=== PATIENT | male | born 1980 | race Caucasian/White ===

== ENCOUNTER 2018-11-09 22:41 | Observation (INO) | payer MEDICAID ==
[2018-11-10 01:26] LABS: ADD MAN DIFF? NO
[2018-11-10 01:28] LABS: ABNORMAL IP MESSAGE 1; BASOPHILS % 0.6 % (0.0-2.0); EOSINOPHILS # 0.1 10^3/ul (0.0-0.5); EOSINOPHILS % 2.1 % (0.0-7.0); HEMATOCRIT 30.1 % (42.0-52.0); HEMOGLOBIN 10.6 g/dl (14.0-18.0); LYMPHOCYTES # 1.1 10^3/ul (0.8-2.9); LYMPHOCYTES % 33.3 % (15.0-51.0); MEAN CORPUSCULAR HEMOGLOBIN 34.1 pg (29.0-33.0); MEAN CORPUSCULAR HGB CONC 35.2 g/dl (32.0-37.0); MEAN CORPUSCULAR VOLUME 96.8 fl (82.0-101.0); MEAN PLATELET VOLUME 10.5 fl (7.4-10.4); MONOCYTE # 0.4 10^3/ul (0.3-0.9); MONOCYTES % 10.6 % (0.0-11.0); NEUTROPHIL # 1.8 10^3/ul (1.6-7.5); NEUTROPHILS % 53.1 % (39.0-77.0); PLATELET COUNT 49 10^3/UL (140-415); POSITIVE DIFF @See below; RED BLOOD COUNT 3.11 10^6/ul (4.70-6.10); RED CELL DISTRIBUTION WIDTH 13.8 % (11.5-14.5)
[2018-11-10 01:28] LABS: WHITE BLOOD COUNT 3.3 10^3/ul (4.8-10.8)
[2018-11-10 01:46] LABS: INR 1.61; PROTIME 19.2 Sec (11.9-14.9); PT RATIO 1.5
[2018-11-10 01:47] LABS: PARTIAL THROMBOPLASTIN TIME 37.1 Sec (23.0-35.0)
[2018-11-10 01:48] LABS: ALANINE AMINOTRANSFERASE 22 IU/L (13-69); ALBUMIN 3.3 g/dl (3.3-4.9); ALBUMIN/GLOBULIN RATIO 0.67; ALKALINE PHOSPHATASE 118 IU/L (42-121); ANION GAP 10 (5-13); ASPARTATE AMINO TRANSFERASE 59 IU/L (15-46); BILIRUBIN,INDIRECT 2.2 mg/dl (0-1.1); BILIRUBIN,TOTAL 2.2 mg/dl (0.2-1.3); BLOOD UREA NITROGEN 12 mg/dl (7-20); CALCIUM 8.4 mg/dl (8.4-10.2); CARBON DIOXIDE 25 mmol/L (21-31); CHLORIDE 101 mmol/L (97-110); CREATININE 0.53 mg/dl (0.61-1.24); Estimated GFR > 60 mL/min (>60); GLUCOSE 94 mg/dl (70-220); POTASSIUM 3.4 mmol/L (3.5-5.1); SODIUM 136 mmol/L (135-144); TOTAL PROTEIN 8.2 g/dl (6.1-8.1)
[2018-11-10 01:56] LABS: B-TYPE NATRIURETIC PEPTIDE 82 PG/ML (0-125)
[2018-11-10 02:00] LABS: TROPONIN-I < 0.012 ng/ml (0.000-0.120)
[2018-11-10] MEDS: FUROSEMIDE 40 MG INJ IV (02:20)
[2018-11-10] MEDS ORDERED: ONDANSETRON 4 MG INJ IV ×2 (03:00→03:30)
[2018-11-10] MEDS ORDERED: NACL 0.9% 3 ML SYG IV ×2 (03:00→03:30)
[2018-11-10] MEDS ORDERED: morphine 2 MG INJ IV (03:30)
[2018-11-10 03:46] LABS: ETHANOL < 10.0 mg/dl (0-0)
[2018-11-10 04:25] LABS: HEPATITIS B SURFACE ANTIGEN NEGATIVE (NEGATIVE)
[2018-11-10 04:43] LABS: HEPATITIS C VIRAL ANTIBODY NEGATIVE (NEGATIVE)
[2018-11-10 04:46] LABS: HEPATITIS B SURFACE ANTIBODY NEGATIVE (NEGATIVE)
[2018-11-10] MEDS: PANTOPRAZOLE 40 MG INJ IV (05:01)
[2018-11-10] MEDS: morphine 2 MG INJ IV (05:12)
[2018-11-10 05:55] LABS: HEMOGLOBIN A1C 4.4 % (0-5.9)
[2018-11-10 06:21] LABS: CHOL/HDL RATIO 2.6 RATIO; CHOLESTEROL 124 mg/dl (100-200); HDL CHOLESTEROL 46 mg/dl (28-63); LDL CHOLESTEROL,CALCULATED 68 mg/dl; TRIGLYCERIDES 50 mg/dl (0-149)
[2018-11-10 06:21] LABS: MAGNESIUM 1.6 mg/dl (1.7-2.5)
[2018-11-10 08:22] LABS: HAAIG REFLEX REFLEX FILED
[2018-11-10] MEDS ORDERED: LACTULOSE 30ML CUP PO (09:00)
[2018-11-10 09:28] LABS: HEPATITIS B SURFACE ANTIGEN NEGATIVE (NEGATIVE)
[2018-11-10] MEDS: predniSONE 20 MG TAB PO (09:40)
[2018-11-10] MEDS: SPIRONOLACTONE 25 MG TAB PO (09:40)
[2018-11-10 09:46] LABS: HEPATITIS B CORE ANTIBODY NEGATIVE (NEGATIVE); HEPATITIS C VIRAL ANTIBODY NEGATIVE (NEGATIVE)
[2018-11-10 11:21] LABS: AMPHETAMINE/METHAMPHETAMINE Negative (NEGATIVE); BARBITURATES Negative (NEGATIVE); BENZODIAZEPINES Negative (NEGATIVE); CANNABINOIDS Negative (NEGATIVE); COCAINE Negative (NEGATIVE)
[2018-11-10 11:31] LABS: OPIATES Positive (NEGATIVE)
[2018-11-10 11:44] LABS: TYPE AND SCREEN 1 1
[2018-11-10] MEDS: PHYTONADIONE 10 MG/ML INJ SC (12:41)
[2018-11-10] MEDS: LIDOCAINE 1% (MPF) 5 ML VIAL (16:27)
[2018-11-10 16:45] LABS: FLD RBC 0 /uL; FLD WBC 138 /cmm
[2018-11-10] MEDS: MAGNESIUM SULFATE 2 GM/50 ML 50 ML IVPB (17:00)
[2018-11-10 17:13] LABS: FLD CLARITY CLEAR; FLD COLOR YELLOW
[2018-11-10 17:13] LABS: FLD TYPE ASCITES
[2018-11-10] MEDS ORDERED: FUROSEMIDE 40 MG INJ IV (18:00)
[2018-11-11 04:52] LABS: ADD MAN DIFF? NO
[2018-11-11 04:56] LABS: WHITE BLOOD COUNT 4.1 10^3/ul (4.8-10.8)
[2018-11-11 04:56] LABS: ABNORMAL IP MESSAGE 1; BASOPHILS % 0.5 % (0.0-2.0); EOSINOPHILS % 0.5 % (0.0-7.0); HEMATOCRIT 28.3 % (42.0-52.0); HEMOGLOBIN 9.9 g/dl (14.0-18.0); LYMPHOCYTES # 1.1 10^3/ul (0.8-2.9); LYMPHOCYTES % 27.1 % (15.0-51.0); MEAN CORPUSCULAR HEMOGLOBIN 33.6 pg (29.0-33.0); MEAN CORPUSCULAR VOLUME 95.9 fl (82.0-101.0); MEAN PLATELET VOLUME 11.3 fl (7.4-10.4); MONOCYTE # 0.4 10^3/ul (0.3-0.9); MONOCYTES % 10.2 % (0.0-11.0); NEUTROPHIL # 2.5 10^3/ul (1.6-7.5); NEUTROPHILS % 61.5 % (39.0-77.0); PLATELET COUNT 54 10^3/UL (140-415); POSITIVE DIFF @See below; RED BLOOD COUNT 2.95 10^6/ul (4.70-6.10); RED CELL DISTRIBUTION WIDTH 13.7 % (11.5-14.5)
[2018-11-11 05:11] LABS: AMMONIA 12 umol/l (9-30)
[2018-11-11 05:23] LABS: ALANINE AMINOTRANSFERASE 20 IU/L (13-69); ALBUMIN 2.8 g/dl (3.3-4.9); ALBUMIN/GLOBULIN RATIO 0.62; ALKALINE PHOSPHATASE 110 IU/L (42-121); ANION GAP 8 (5-13); ASPARTATE AMINO TRANSFERASE 46 IU/L (15-46); BILIRUBIN,INDIRECT 1.9 mg/dl (0-1.1); BILIRUBIN,TOTAL 1.9 mg/dl (0.2-1.3); BLOOD UREA NITROGEN 12 mg/dl (7-20); CALCIUM 8.1 mg/dl (8.4-10.2); CARBON DIOXIDE 27 mmol/L (21-31); CHLORIDE 104 mmol/L (97-110); CREATININE 0.57 mg/dl (0.61-1.24); Estimated GFR > 60 mL/min (>60); GLUCOSE 99 mg/dl (70-220); SODIUM 139 mmol/L (135-144); TOTAL PROTEIN 7.3 g/dl (6.1-8.1)
[2018-11-11 06:01] LABS: THYROID STIMULATING HORMONE 0.645 MIU/L (0.465-4.680)
[2018-11-11] MEDS: SPIRONOLACTONE 25 MG TAB PO (09:32)
[2018-11-11] MEDS: FUROSEMIDE 40 MG TAB PO (09:33)
[2018-11-11] MEDS: PHYTONADIONE 10 MG/ML INJ SC (09:34)
== END 2018-11-11 14:57 | disposition home or self-care (01) ==
LOC: E/R 22:41 → MS1 11-10 02:58
DX: K70.31 Alcoholic cirrhosis of liver with ascites (principal); Z87.891 Personal history of nicotine dependence; D64.9 Anemia, unspecified; D69.6 Thrombocytopenia, unspecified
CPT/HCPCS: 36415; 36430; 71045; 76705; 80053; 80061; 80307; 82042; 82140; 83036; 83735; 83880; 84443; 84484; 85025; 85610; 85730; 86644; 86704; 86706; 86709; 86803; 86850; 86900; 86901; 87070; 87102; 87116; 87340; 89051; 93005; 96374; 99285-25